=== PATIENT | male | born 1990 | race Caucasian/White ===

== ENCOUNTER 2025-03-27 16:28 | Emergency (ER) | payer OTHER ==
[~2025-03-27] VITALS: Ht 182.9 cm; Wt 141.0 kg
[2025-03-27] MEDS ORDERED: TRANEXAMIC ACID 1,000 MG/10 ML AMP NAS ONE (19:30)
[2025-03-27 20:43] VITALS: BP 147/79
== END 2025-03-27 20:44 | disposition home or self-care (01) ==
LOC: ED 16:28
DX: R04.0 Epistaxis (principal)
CPT/HCPCS: 30903; 99283-25